=== PATIENT | male | born 1950 | race Caucasian/White ===

== ENCOUNTER → 2016-11-19 | Day surgery (SDC) | payer MEDICARE, BC ==
[~2016-11-19] VITALS: Ht 195.6 cm; Wt 92.9 kg
[2016-11-19] VITALS (10 sets, daily range): BP systolic 98–133; BP diastolic 60–80; PULSE 48–73; TEMP 98.4–98.6
[~2016-11-19] MED LIST: ASPIRIN E.C. 8181 MG PO; BYSTOLIC2.5 MG PO; EPA FISH OIL1000 MG PO; FE-TABS325 MG PO; FISH OIL 1000MG1 CAP PO; FOLIC ACID 40400 MCG PO; GLUCOSAMINE CHO1 CA1 PO; LIPITOR 10MG10 MG PO; PLAVIX 75MG TAB75 MG PO; TAMBOCOR150 MG PO; THERAPEUTIC VIT1 CAP PO; VITAMIN C PO; [UNRECOGNIZED DRUG - OTHER] PO
[2016-11-19 08:04] LABS: HEMATOCRIT 48.2 % (42.0-52.0); HEMOGLOBIN 16.1 g/dl (13.5-18.0); MEAN CELL VOLUME 99 fl (80.0-100.0); MEAN CORPUSCULAR HEMOGLOBIN 33 pg (27.0-31.0); MEAN CORPUSCULAR HGB CONC 33 g/dl (33.0-37.0); MEAN PLATELET VOLUME 11.7 fl (7.4-10.4); PLATELET COUNT 201 K/mm3 (130-400); RED BLOOD COUNT 4.87 M/mm3 (4.20-5.60); REDCELL DISTRIBUTION WIDTH-CV 12.2 % (11.5-14.5)
[2016-11-19 08:07] LABS: PROTHROMBIN TIME 10.8 SECONDS (9.7-12.8)
[2016-11-19 08:17] LABS: CALCIUM 9.3 mg/dL (8.4-10.2)
== END ==
LOC: COL.CAR 07:30 → EUO 07:35
PROVIDERS: Internal Medicine Cardiovascular Disease
DX: R94.39 Abnormal result of other cardiovascular function study (principal); I48.0 Paroxysmal atrial fibrillation; E78.5 Hyperlipidemia, unspecified; Z82.49 Family history of ischemic heart disease and other diseases of the circulatory system; Z82.3 Family history of stroke
CPT/HCPCS: C1769; J1644; J2250; J3010; Q9967

== ENCOUNTER → 2018-05-25 | Outpatient (CLI) | payer MEDICARE, BC ==
[~2018-05-25] MED LIST changes: +ELIQUIS 2.5 PO
== END ==
LOC: COL.RAD 09:33
DX: I77.819 Aortic ectasia, unspecified site (principal); R91.1 Solitary pulmonary nodule
CPT/HCPCS: Q9967